=== PATIENT | female | born 1965 | race Caucasian/White ===

== ENCOUNTER 2021-11-29 09:35 | Emergency (ER) | payer OTHER ==
--- NOTE | 2021-11-29 10:08 | ED ---
General Adult HPI - General Chief complaint: Upper Respiratory Infection Stated complaint: Covid+/Infusion Time Seen by Provider: 11/29/21 09:46 Source: patient, RN notes reviewed Mode of arrival: ambulatory Limitations: no limitations - History of Present Illness Initial comments: 56-year-old female presents emergency Department with chief complaint of COVID- 19. Patient states symptoms started around 8 days ago she tests positive. Patient states she was sent here for monoclonal antibodies by her PCP. Patient states she's had cough congestion mild shortness breath headache bodyaches. Patient has no GI symptoms. Patient offers no other complaints. - Related Data Allergies Allergy/AdvReac Type Severity Reaction Status Date / Time No Known Allergies Allergy Verified 11/29/21 09:54 Review of Systems ROS Statement: Those systems with pertinent positive or pertinent negative responses have been documented in the HPI. ROS Other: All systems not noted in ROS Statement are negative. Past Medical History Past Medical History: No Reported History History of Any Multi-Drug Resistant Organisms: None Reported Past Surgical History: No Surgical Hx Reported Past Psychological History: No Psychological Hx Reported Smoking Status: Never smoker Past Alcohol Use History: None Reported Past Drug Use History: None Reported General Exam Limitations: no limitations General appearance: alert, in no apparent distress Head exam: Present: atraumatic, normocephalic, normal inspection Eye exam: Present: normal appearance, PERRL, EOMI. Absent: scleral icterus, conjunctival injection, periorbital swelling ENT exam: Present: normal exam, normal oropharynx, mucous membranes moist Neck exam: Present: normal inspection, full ROM. Absent: tenderness, meningismus, lymphadenopathy Respiratory exam: Present: normal lung sounds bilaterally. Absent: respiratory distress, wheezes, rales, rhonchi, stridor Cardiovascular Exam: Present: regular rate, normal rhythm, normal heart sounds. Absent: systolic murmur, diastolic murmur, rubs, gallop, clicks Course Vital Signs 11/29/21 09:48 Temperature 98.4 F Pulse Rate 90 Respiratory 18 Rate Blood Pressure 140/98 O2 Sat by Pulse 96 Oximetry Medical Decision Making - Medical Decision Making Patient is positive for covid 19 will receive monoclonal antibodies we discharged in stable condition return parameters were discussed. Disposition Clinical Impression: COVID-19 Disposition: HOME SELF-CARE Condition: Stable Instructions (If sedation given, give patient instructions): Coronavirus Disease 2019 (COVID-19) Additional Instructions: Please return to the Emergency Department if symptoms worsen or any other concerns. Is patient prescribed a controlled substance at d/c from ED?: No Referrals: Huong Hunt MD [Primary Care Provider] - 1-2 days Time of Disposition: 10:08
[2021-11-29] MEDS ORDERED: BAMLANIVIMAB (EUA) 700 MG, ETESEVIMAB (EUA) 1,400 MG in SODIUM CHLORIDE 0.9% 100 ML IVPB ONE (10:15)
[2021-11-29] MEDS ORDERED: SODIUM CHLORIDE 0.9% 50 ML IVPB ONE (10:15)
[2021-11-29 10:58] VITALS: TEMP 98.9
[2021-11-29] MEDS ORDERED: SODIUM CHLORIDE 0.9% 500 ML 500 ML in EMPTY BAG 1 BAG IV PRN (11:07)
[2021-11-29 11:49] VITALS: BP 136/92; PULSE 68; RESP 16
== END 2021-11-29 12:20 | disposition home or self-care (01) ==
LOC: PROCWHC3 09:35 → EC 09:35 → EDSTATUS 10:53 → PROCWHC3 12:20
DX: U07.1 COVID-19 (principal)
CPT/HCPCS: 96360; 99283; J3490; M0245